=== PATIENT | male | born 1965 ===

== ENCOUNTER → 2017-01-09 | Outpatient (CLI) | payer OTHER | END | disposition home or self-care (01) | LOC: GMAM 13:25 | PROVIDERS: ATTEND Family Medicine | DX: Z12.5 Encounter for screening for malignant neoplasm of prostate (principal); E29.1 Testicular hypofunction; R53.81 Other malaise ==

== ENCOUNTER → 2017-06-05 | Outpatient (CLI) | payer OTHER | END | disposition home or self-care (01) | LOC: GMAM 12:36 | PROVIDERS: ATTEND Family Medicine | DX: R53.81 Other malaise (principal); R97.20 Elevated prostate specific antigen [PSA]; E29.1 Testicular hypofunction ==